=== PATIENT | female | born 1975 | race Caucasian/White ===

== ENCOUNTER → 2017-11-25 | Outpatient (CLI) | payer OTHER ==
[~2017-11-25] MED LIST: AMBIEN 5 MG TABL5 M1; DEPAKOTE250 MG PO; DEPAKOTE500 MG; FIORINAL CAPSUL1 CA1; FLEXERIL; HYDROXYCHLOROQ200 M1; MOBIC7.5 MG; NORTRIPTYLINE H75 M1 PO; PROPRANOLOL 1010 M1 PO; TRAMADOL 50 MG50 MG; VITAMIN D 5050000 I1; ZANAFLEX4 M1; ZOFRAN4 MG
== END ==
LOC: M.RAD 14:28
DX: M43.27 Fusion of spine, lumbosacral region (principal)